=== PATIENT | male | born 1975 | race Two or more races ===

== ENCOUNTER 2020-06-04 01:30 | Emergency (ER) | payer BC, OTHER ==
[~2020-06-04] VITALS: Ht 170.2 cm; Wt 125.0 kg
[~2020-06-04 01:30] MED LIST: OXYC-150 PO; TEST200V10 IM
[2020-06-04] MEDS ORDERED: ketorolac trometh inj. 60 MG/2 ML VIAL IM ONE (02:15)
[2020-06-04 02:22] VITALS: BP 153/112
== END 2020-06-04 02:25 | disposition home or self-care (01) ==
LOC: ER 01:31
DX: M25.511 Pain in right shoulder (principal); E78.00 Pure hypercholesterolemia, unspecified; I10 Essential (primary) hypertension; G47.30 Sleep apnea, unspecified; Z72.89 Other problems related to lifestyle; Z91.018 Allergy to other foods; Z79.899 Other long term (current) drug therapy
CPT/HCPCS: 96372; 99283; J1885

== ENCOUNTER 2021-09-03 19:32 | Emergency (ER) | payer BC ==
[~2021-09-03] VITALS: Ht 170.2 cm; Wt 125.0 kg
[~2021-09-03 19:32] MED LIST changes: -TEST200V10 IM; +TEST200V33 IM
[2021-09-03] MEDS ORDERED: vancomycin/NS 1 GM ADD-VANTAGE 250 ML IV ONE (23:10)
[2021-09-03] MEDS ORDERED: normal saline 1000ml 1,000 ML IV ONE (23:10)
[2021-09-03] MEDS ORDERED: clindamycin 600mg/D5W 50ml 50 ML IV ONE (23:10)
[2021-09-03 23:31] LABS: ALANINE AMINOTRANSFERASE 45 U/L (12-78); ALBUMIN 4.4 G/DL (3.4-5.0); ALBUMIN/GLOBULIN RATIO 0.9 (1.1-1.5); ALKALINE PHOSPHATASE 134 IU/L (46-116); ANION GAP 12 (8-16); ASPARTATE AMINO TRANSFERASE 20 U/L (10-37); BILIRUBIN,TOTAL 0.8 MG/DL (0.1-1.0); BLOOD UREA NITROGEN 9 MG/DL (7-18); BUN/CREATININE RATIO 8.6 (5.4-32.0); CALCIUM 8.7 MG/DL (8.5-10.1); CHLORIDE 101 MMOL/L (99-107); CREATININE 1.05 MG/DL (0.60-1.10); GLUCOSE 163 MG/DL (70-104); MAGNESIUM 2.2 MG/DL (1.5-2.4); POTASSIUM 3.9 MMOL/L (3.5-5.1); SODIUM 138 MMOL/L (135-145); TOTAL CARBON DIOXIDE 25.2 MMOL/L (24-32); TOTAL PROTEIN 9.1 G/DL (6.4-8.2); eGFR 77 ML/MIN
[2021-09-03 23:34] LABS: MEAN PLATELET VOLUME 7.7 FL (7.4-10.4); WHITE BLOOD COUNT 9.4 X10'3 (4.5-11.0)
[2021-09-03 23:36] LABS: BASOPHILS # (AUTO) 0.1 X10'3 (0-0.2); BASOPHILS % (AUTO) 0.6 % (0-1); EOSINOPHILS # (AUTO) 0.7 X10'3 (0-0.9); EOSINOPHILS % (AUTO) 7.5 % (0-6); HEMATOCRIT 57.2 % (42.0-52.0); LYMPHOCYTES # (AUTO) 1.8 X10'3 (1.1-4.8); MEAN CORPUSCULAR HEMOGLOBIN 28.8 PG (27.0-31.0); MEAN CORPUSCULAR VOLUME 87.3 FL (78-98); MONOCYTES # (AUTO) 0.8 X10'3 (0-0.9); MONOCYTES % (AUTO) 8.3 % (2-12); NEUTROPHILS # (AUTO) 6.1 X10'3 (1.8-7.7); NEUTROPHILS % (AUTO) 64.6 % (42-75); PLATELET COUNT 339 X10'3 (140-440); RED BLOOD COUNT 6.56 X10'6 (4.70-6.10); RED CELL DISTRIBUTION WIDTH 13.9 % (11.5-14.5)
[2021-09-03 23:45] LABS: HEMOGLOBIN 18.9 g/dl (14.0-17.9)
[2021-09-04] MEDS ORDERED: CLIN150C8 PO (01:57)
[2021-09-04 02:05] VITALS: BP 152/104
== END 2021-09-04 02:09 | disposition home or self-care (01) ==
LOC: ER 19:33
DX: L03.115 Cellulitis of right lower limb (principal); E78.00 Pure hypercholesterolemia, unspecified; I10 Essential (primary) hypertension; G47.30 Sleep apnea, unspecified; Z72.89 Other problems related to lifestyle; Z79.2 Long term (current) use of antibiotics; Z79.899 Other long term (current) drug therapy; Z91.018 Allergy to other foods
CPT/HCPCS: 80053; 83605; 83735; 84145; 85025; 87040; 93971; 96365; 96375; 99285; J3370; J3490; J7030; 96361; 96374